=== PATIENT | female | born 1935 | race Two or more races ===

== ENCOUNTER 2018-07-02 22:34 | Inpatient (IN) | payer OTHER ==
[~2018-07-02] VITALS: Ht 149.9 cm; Wt 87.1 kg
[~2018-07-02 22:34] MED LIST: BINOSTO70 MG; CYMBALTA30 MG; HYDRALAZINE HCL25 MG; IMDUR30 MG; LOSARTAN-HCTZ1 EAC1; LUMIGAN2.5 M1; METOPROLOL SUCC50 MG; NEURONTIN800 MG; REFRESH15 ML; SIMVASTATIN20 MG; ZANTAC150 M3
== END 2018-07-06 18:58 | DRG 293 ==
LOC: ER 22:34 → SEC-K 07-03 11:00 → MEDJ 07-03 14:06 → MEDI 07-03 14:06 → MEDJ 07-03 14:12
PROC: B246ZZZ Ultrasonography of Right and Left Heart (ICD-10-PCS; principal; 2018-07-03)
PROC: 4A033R1 Measurement of Arterial Saturation, Peripheral, Percutaneous Approach (ICD-10-PCS; 2018-07-03)
PROC: 3E0F7GC Introduction of Other Therapeutic Substance into Respiratory Tract, Via Natural or Artificial Opening (ICD-10-PCS; 2018-07-03)
PROC: 4A12X4Z Monitoring of Cardiac Electrical Activity, External Approach (ICD-10-PCS; 2018-07-03)
DX: I11.0 Hypertensive heart disease with heart failure (principal); I50.33 Acute on chronic diastolic (congestive) heart failure; I34.0 Nonrheumatic mitral (valve) insufficiency; R09.02 Hypoxemia; E66.09 Other obesity due to excess calories; E78.4 Other hyperlipidemia; I27.29 Other secondary pulmonary hypertension

== ENCOUNTER 2019-05-03 16:03 | Inpatient (IN) | payer OTHER ==
[~2019-05-03] VITALS: Ht 157.5 cm; Wt 87.5 kg
[2019-05-03] MEDS ORDERED: CLOPIDOGREL BIS75 MG (16:33)
[2019-05-03] MEDS ORDERED: NIFEDIPINE20 MG (16:33)
[2019-05-03] MEDS ORDERED: FUROSEMIDE20 MG (16:33)
[2019-05-03] MEDS ORDERED: VALSARTAN320 MG (16:33)
[2019-05-03] MEDS ORDERED: FAMOTIDINE20 MG (16:34)
== END 2019-05-10 14:29 | DRG 281 ==
LOC: ER 16:03 → ICU-2 20:41 → ICU 20:41 → MEDJ 05-07 16:40
PROVIDERS: ADMIT Specialist
PROC: 4A033R1 Measurement of Arterial Saturation, Peripheral, Percutaneous Approach (ICD-10-PCS; principal; 2019-05-03)
PROC: B246ZZZ Ultrasonography of Right and Left Heart (ICD-10-PCS; 2019-05-03)
PROC: 0T9B70Z Drainage of Bladder with Drainage Device, Via Natural or Artificial Opening (ICD-10-PCS; 2019-05-03)
PROC: B54DZZZ Ultrasonography of Bilateral Lower Extremity Veins (ICD-10-PCS; 2019-05-05)
PROC: 4A12X4Z Monitoring of Cardiac Electrical Activity, External Approach (ICD-10-PCS; 2019-05-07)
DX: I11.0 Hypertensive heart disease with heart failure (principal); I21.4 Non-ST elevation (NSTEMI) myocardial infarction; Z99.11 Dependence on respirator [ventilator] status; J98.11 Atelectasis; I13.0 Hypertensive heart and chronic kidney disease with heart failure and stage 1 through stage 4 chronic kidney disease, or unspecified chronic kidney disease; I50.32 Chronic diastolic (congestive) heart failure; N18.3 Chronic kidney disease, stage 3 (moderate); G47.33 Obstructive sleep apnea (adult) (pediatric); E66.01 Morbid (severe) obesity due to excess calories; I87.2 Venous insufficiency (chronic) (peripheral); R09.02 Hypoxemia; I65.23 Occlusion and stenosis of bilateral carotid arteries; M17.4 Other bilateral secondary osteoarthritis of knee; R53.81 Other malaise; E78.49 Other hyperlipidemia; I08.1 Rheumatic disorders of both mitral and tricuspid valves; Z88.6 Allergy status to analgesic agent; Z88.0 Allergy status to penicillin; Z79.01 Long term (current) use of anticoagulants; N39.8 Other specified disorders of urinary system

== ENCOUNTER → 2019-05-20 | Emergency (ER) | payer OTHER ==
[~2019-05-20] VITALS: Ht 147.3 cm; Wt 87.5 kg
[~2019-05-20] MED LIST changes: +CAPOTEN12.5 MG PO; +CLOPIDOGREL BIS75 MG; +FAMOTIDINE20 MG; +FUROSEMIDE20 MG; +NIFEDIPINE20 MG; +POTASSIUM CHLO10 ME1 PO; +VALSARTAN320 MG
== END | disposition left against medical advice (07) ==
LOC: ER 08:27
DX: K57.32 Diverticulitis of large intestine without perforation or abscess without bleeding (principal)

== ENCOUNTER 2020-01-22 09:08 | Outpatient (CLI) | payer OTHER | END 2020-01-22 13:46 | disposition home or self-care (01) | LOC: NUCLEAR 09:08 | DX: I27.21 Secondary pulmonary arterial hypertension (principal); I50.33 Acute on chronic diastolic (congestive) heart failure; G47.33 Obstructive sleep apnea (adult) (pediatric); I67.89 Other cerebrovascular disease ==

== ENCOUNTER 2020-02-29 06:54 | Emergency (ER) | payer OTHER ==
[~2020-02-29] VITALS: Ht 147.3 cm; Wt 87.5 kg
== END 2020-02-29 13:18 | disposition home or self-care (01) ==
LOC: ER 06:54
DX: K29.60 Other gastritis without bleeding (principal)

== ENCOUNTER 2020-05-28 13:14 | Outpatient (CLI) | payer OTHER | END 2020-05-28 19:13 | disposition home or self-care (01) | LOC: OFIC 805 13:14 | PROVIDERS: ATTEND Otolaryngology | DX: H66.91 Otitis media, unspecified, right ear (principal); H72.2X1 Other marginal perforations of tympanic membrane, right ear ==

== ENCOUNTER 2020-06-11 13:43 | Outpatient (CLI) | payer OTHER | END 2020-06-11 14:30 | disposition home or self-care (01) | LOC: OFIC 805 13:43 | PROVIDERS: ATTEND Otolaryngology | DX: H90.3 Sensorineural hearing loss, bilateral (principal); H72.2X1 Other marginal perforations of tympanic membrane, right ear; H61.21 Impacted cerumen, right ear; R09.81 Nasal congestion; J32.9 Chronic sinusitis, unspecified; J34.3 Hypertrophy of nasal turbinates ==

== ENCOUNTER 2020-07-24 09:32 | Emergency (ER) | payer OTHER ==
[~2020-07-24] VITALS: Ht 147.3 cm; Wt 88.5 kg
[2020-07-24] MEDS ORDERED: ATACAND32 MG (09:50)
[2020-07-24] MEDS ORDERED: AZOR 10-20 MG1 EACH (09:52)
== END 2020-07-24 15:12 | disposition home or self-care (01) ==
LOC: ER 09:32 → CPU-OBS 10:18 → ER 15:12
DX: I11.0 Hypertensive heart disease with heart failure (principal); I50.9 Heart failure, unspecified; Z03.818 Encounter for observation for suspected exposure to other biological agents ruled out; R07.89 Other chest pain

== ENCOUNTER 2021-09-07 09:08 | Inpatient (IN) | payer OTHER ==
[~2021-09-07] VITALS: Ht 147.3 cm; Wt 88.9 kg
[~2021-09-07 09:08] MED LIST changes: +ATACAND32 MG; +AZOR 10-20 MG1 EACH
[2021-09-07] MEDS ORDERED: ATACAND32 MG PO (09:14)
[2021-09-07] MEDS ORDERED: HYDRALAZINE HCL25 MG PO (09:16)
== END 2021-09-10 17:43 | disposition home or self-care (01) | DRG 310 ==
LOC: ER 09:08 → MEDJ 10:55
PROVIDERS: ADMIT Specialist; ATTEND Specialist
PROC: B24BZZZ Ultrasonography of Heart with Aorta (ICD-10-PCS; principal; 2021-09-07)
PROC: 4A12X4Z Monitoring of Cardiac Electrical Activity, External Approach (ICD-10-PCS; 2021-09-07)
PROC: B030ZZZ Magnetic Resonance Imaging (MRI) of Brain (ICD-10-PCS; 2021-09-09)
DX: I48.91 Unspecified atrial fibrillation (principal); I11.0 Hypertensive heart disease with heart failure; Z20.822 Contact with and (suspected) exposure to COVID-19
CPT/HCPCS: 70551

== ENCOUNTER 2021-12-25 03:09 | Inpatient (IN) | payer OTHER ==
[~2021-12-25] VITALS: Ht 167.6 cm; Wt 87.1 kg
[~2021-12-25 03:09] MED LIST changes: +ATACAND32 MG PO; +HYDRALAZINE HCL25 MG PO
[2021-12-26] MEDS ORDERED: ALPHAGAN P5 M2 (09:14)
[2021-12-26] MEDS ORDERED: DIGOXIN125 MCG (09:15)
[2021-12-26] MEDS ORDERED: METOPROLOL TART50 MG (09:15)
[2022-01-03] MEDS ORDERED: IMDUR 30 MG PO (13:56)
[2022-01-03] MEDS ORDERED: ISOSORBIDE MONO30 MG PO (13:56)
[2022-01-03] MEDS ORDERED: SIMVASTATIN20 MG PO (13:56)
[2022-01-03] MEDS ORDERED: ATACAND32 MG PO (13:56)
[2022-01-03] MEDS ORDERED: GABAPENTIN400 MG PO (13:56)
[2022-01-03] MEDS ORDERED: HYDRALAZINE HCL50 MG PO (13:56)
[2022-01-03] MEDS ORDERED: INTESTINEX680 M1 PO (13:56)
[2022-01-03] MEDS ORDERED: METOPROLOL TART50 MG PO (13:56)
[2022-01-03] MEDS ORDERED: ELIQUIS5 MG PO (13:56)
[2022-01-03] MEDS ORDERED: FUROSEMIDE20 MG PO (13:56)
== END 2022-01-03 16:13 | disposition home or self-care (01) | DRG 690 ==
LOC: ER 03:09 → MEDI 20:35
PROVIDERS: ADMIT Specialist; ATTEND Specialist
PROC: B24BZZZ Ultrasonography of Heart with Aorta (ICD-10-PCS; principal; 2021-12-25)
PROC: BW21YZZ Computerized Tomography (CT Scan) of Abdomen and Pelvis using Other Contrast (ICD-10-PCS; 2021-12-25)
PROC: 4A12X4Z Monitoring of Cardiac Electrical Activity, External Approach (ICD-10-PCS; 2021-12-26)
DX: N39.0 Urinary tract infection, site not specified (principal); I16.9 Hypertensive crisis, unspecified; I48.20 Chronic atrial fibrillation, unspecified; K57.30 Diverticulosis of large intestine without perforation or abscess without bleeding; K21.9 Gastro-esophageal reflux disease without esophagitis; K59.09 Other constipation; B96.20 Unspecified Escherichia coli [E. coli] as the cause of diseases classified elsewhere; E78.49 Other hyperlipidemia; D72.828 Other elevated white blood cell count; I25.10 Atherosclerotic heart disease of native coronary artery without angina pectoris; Z74.01 Bed confinement status; I11.0 Hypertensive heart disease with heart failure; I50.9 Heart failure, unspecified; Z20.822 Contact with and (suspected) exposure to COVID-19; Z79.01 Long term (current) use of anticoagulants

== ENCOUNTER 2022-02-23 08:05 | Outpatient (CLI) | payer OTHER ==
[~2022-02-23 08:05] MED LIST changes: +ALPHAGAN P5 M2; +DIGOXIN125 MCG; +ELIQUIS5 MG PO; +FUROSEMIDE20 MG PO; +GABAPENTIN400 MG PO; +HYDRALAZINE HCL50 MG PO; +IMDUR 30 MG PO; +INTESTINEX680 M1 PO; +ISOSORBIDE MONO30 MG PO; +METOPROLOL TART50 MG; +METOPROLOL TART50 MG PO; +SIMVASTATIN20 MG PO
== END 2022-02-23 08:13 | disposition home or self-care (01) ==
LOC: NUCLEAR 08:05
PROVIDERS: ATTEND Internal Medicine Cardiovascular Disease
DX: R07.89 Other chest pain (principal); I25.2 Old myocardial infarction

== ENCOUNTER 2022-04-15 22:01 | Inpatient (IN) | payer OTHER ==
[~2022-04-15] VITALS: Ht 149.9 cm; Wt 87.5 kg
--- NOTE | 2022-04-15 22:34 | NUR ---
SE RECIBE PTE ALERTA Y ORIENTADA X3 ACOMPNADA POR DUARTE FAMILIAR LA CUAL REFIERE QUE LA PTE LLEVA 3 PATTON CON AMBAS PIERNAS INFLAMADAS,SE LE SAUL S/V PRESION ALTERIAL 140/95 ,SE LE REALIZA EKG ,ES PTE DEL DR.MARCUS LOVETT Y EL .
--- NOTE | 2022-04-15 23:52 | NUR ---
PTE ALERTA Y ORIENTADA X3 EN CONNIE CON BARANDAS ELEVADAS. SE LE ASUL MUESTRAS DE LAB. DARIELA ORDEN MEDICA BAJO MEDIDAS ASEPTICAS. SE CANALIZA AREA JESS DE EDEMA Y DE ENROJECIMIENTO. SE LE INSERTA ROSARIO DE MANERA ESTERIL DRENANDO 300 ML DE ORINA COLOR AMARILLO INTENSO. SE EDUCA A PTE/FAMILIAR SOBRE TRATAMIENTO MEDICO.
--- NOTE | 2022-04-16 05:13 | NUR ---
3:50AM: PACIENTE TRASLADADA POR ESCOLTA DE TURNO AL AREA DE ICU EN ER. SE UBICA PACIENTE EN CONNIE #2 CON BARANDAS ELEVADAS POR PRECUACION A CAIDA. SE CONECTA A MONITOR CARDIACO Y OXIMETRIA. PACIENTE CON H/L EN BRAZO DERECHO CON ANGIO #18, EL MISMO SE ENCUENTRA PATENTE, JESS DE EDEMA Y ERITEMA, ROSARIO CATETER CON EGRESO URINARIO COLOR AMARILLO ARIELLA Y JESS DE SANGRADO. 3:57AM: SE COMIENZA DRIP DE TRIDIL A 3ML/HR DARIELA ORDEN MEDICA. 4:00AM: SE ELZBIETA PRESION MANUAL LA MISMA ES DE 182/97. SE NOTIFICA LA MISMA A DR WU QUIEN INDICA VOLVER A SHAHLA LUEGO DE 30MIN. 4:32AM: SE ELZBIETA PRESION DE PACINETE LA MISMA ES DE 178/83, SE LE NOTIFICA A DR WU QUIEN ORDENA VERBALMENTE SUBIR EL TRIDIL A 5ML/HR. SE EJECUTA ORDEN MEDICA. SE MANTIENE PACIENTE BAJO OBSERVACION POR CAMBIOS SIGNIFICATIVOS EN DUARTE TRATAMIENTO MEDICO.
--- NOTE | 2022-04-16 06:38 | NUR ---
PACIENTE ELIMINA A TRAVES DEL ROSARIO CATETER 1000ML.
--- NOTE | 2022-04-16 07:00 | NUR ---
PTE ALERTA Y ORIENTADA POR JAY ESFERAS CON BUEN PATRON RESPIRATORIO. ESTA CONECTADA AL MONITOR CARDIACO, NBP Y OXIMETRIA. TIENE CANULA NASALA A 3LT. TIENE CANALIZACIONES X2 EN LA Y RA, CANALIZACIONES PERMANECEN PATENTE JESS DE EDEMA Y ERITEMA. TIENE TRIDIL 50MG/250ML @5ML/HR. TIENE ROSARIO A GRAVEDAD CON ORINA AMARILLA Y SEDIMENTACION.
--- NOTE | 2022-04-16 07:01 | NUR ---
PENDIENTE CONSULTA CON
[2022-04-20] MEDS ORDERED: LATANOPROST2.5 ML (16:04)
[2022-04-20] MEDS ORDERED: ALPHAGAN P5 M2 (16:05)
[2022-04-20] MEDS ORDERED: DIGOXIN125 MCG (16:05)
== END 2022-04-22 23:18 | disposition home or self-care (01) | DRG 292 ==
LOC: ER 22:01 → ICU-2 04-16 16:13 → SEC-K 04-16 16:13 → ICU-2 04-16 18:22 → SEC-K 04-19 10:13 → SURH 04-19 13:42
PROVIDERS: ADMIT Specialist; ATTEND Specialist
PROC: BW24YZZ Computerized Tomography (CT Scan) of Chest and Abdomen using Other Contrast (ICD-10-PCS; principal; 2022-04-16)
PROC: 5A09357 Assistance with Respiratory Ventilation, Less than 24 Consecutive Hours, Continuous Positive Airway Pressure (ICD-10-PCS; 2022-04-17)
PROC: 4A12X4Z Monitoring of Cardiac Electrical Activity, External Approach (ICD-10-PCS; 2022-04-19)
DX: I11.0 Hypertensive heart disease with heart failure (principal); I48.20 Chronic atrial fibrillation, unspecified; I50.813 Acute on chronic right heart failure; I27.81 Cor pulmonale (chronic); I27.29 Other secondary pulmonary hypertension; E87.6 Hypokalemia; R60.0 Localized edema; I35.0 Nonrheumatic aortic (valve) stenosis; Z20.822 Contact with and (suspected) exposure to COVID-19; G47.33 Obstructive sleep apnea (adult) (pediatric)

== ENCOUNTER 2022-04-28 10:41 | Inpatient (IN) | payer OTHER ==
[~2022-04-28] VITALS: Ht 149.9 cm; Wt 104.3 kg
[~2022-04-28 10:41] MED LIST changes: +LATANOPROST2.5 ML
--- NOTE | 2022-04-28 11:13 | NUR ---
SE RECIBE PTE ALERTA Y ORIENTADA X3 QUIEN REFIER PIERNAS EDEMATODSAS HACE UNOS PATTON. PTE CON DX DE CH. SE SAUL S/V Y SE UBICA.
--- NOTE | 2022-04-28 13:26 | NUR ---
SE REALIZAN MUESTRAS DE ERICA POR ORDEN MEDICA, SE ORIENTA A PACIENTE SOBRE ADMINISTRACION DE TERAPIA INTRAVWENOSA Y SE MANTIENE EN OBSERVACION EN ESPERA DE REVALUACION MEDICA. SE REALIZA INSERCION DE MARLENE KATELYN #16. PACIENTE EN CONNIE KATELYN 6.
--- NOTE | 2022-04-28 17:14 | NUR ---
SE RECIBE PTE ALERTA EN CAMA CON BARANDAS ELEVADAS Y EN COMPANIA DE FAMILIAR. RECIBIENDO 0.9 IV FLUID BAJANDO A 100 EN BRAZO JIMENEZ. SONDA URINARIA DRENANDO A GRAVEDAD LA CUAL TENIA 1000 ML Y ORINA COLOR AMARILLO ARIELLA. PENDIENTE REEVALUACION MEDICA.
== END 2022-05-02 21:30 | disposition home or self-care (01) | DRG 292 ==
LOC: ER 10:41 → MEDJ 20:03
PROVIDERS: ADMIT Specialist; ATTEND Specialist
PROC: B246ZZZ Ultrasonography of Right and Left Heart (ICD-10-PCS; principal; 2022-04-28)
PROC: 4A033R1 Measurement of Arterial Saturation, Peripheral, Percutaneous Approach (ICD-10-PCS; 2022-04-28)
PROC: 4A12X4Z Monitoring of Cardiac Electrical Activity, External Approach (ICD-10-PCS; 2022-04-29)
DX: I11.0 Hypertensive heart disease with heart failure (principal); Z68.42 Body mass index [BMI] 45.0-49.9, adult; I48.20 Chronic atrial fibrillation, unspecified; I50.9 Heart failure, unspecified; I27.29 Other secondary pulmonary hypertension; Z20.822 Contact with and (suspected) exposure to COVID-19; E66.01 Morbid (severe) obesity due to excess calories; G47.33 Obstructive sleep apnea (adult) (pediatric)

== ENCOUNTER 2022-10-14 15:42 | Inpatient (IN) | payer OTHER ==
[~2022-10-14] VITALS: Ht 147.3 cm; Wt 88.5 kg
== END 2022-10-22 18:22 | disposition home or self-care (01) | DRG 292 ==
LOC: ER 15:42 → ICU-2 21:29 → SEC-K 10-16 12:37 → MEDI 10-17 11:00 → SEC-K 10-17 12:19 → MEDI 10-18 01:01 → SEC-K 10-18 11:35 → MEDI 10-19 12:28
PROVIDERS: ADMIT Specialist; ATTEND Specialist
PROC: B24BZZZ Ultrasonography of Heart with Aorta (ICD-10-PCS; 2022-10-18)
PROC: 4A12X4Z Monitoring of Cardiac Electrical Activity, External Approach (ICD-10-PCS; principal; 2022-10-19)
DX: I11.0 Hypertensive heart disease with heart failure (principal); N39.0 Urinary tract infection, site not specified; I50.9 Heart failure, unspecified; I35.0 Nonrheumatic aortic (valve) stenosis; I48.91 Unspecified atrial fibrillation; I27.29 Other secondary pulmonary hypertension; E11.9 Type 2 diabetes mellitus without complications; Z79.4 Long term (current) use of insulin; G47.33 Obstructive sleep apnea (adult) (pediatric); B96.1 Klebsiella pneumoniae [K. pneumoniae] as the cause of diseases classified elsewhere; G30.0 Alzheimer's disease with early onset; F02.80 Dementia in other diseases classified elsewhere, unspecified severity, without behavioral disturbance, psychotic disturbance, mood disturbance, and anxiety; E66.01 Morbid (severe) obesity due to excess calories

== ENCOUNTER 2022-11-08 05:25 | Emergency (ER) | payer OTHER ==
[~2022-11-08] VITALS: Ht 147.3 cm; Wt 90.7 kg
== END 2022-11-08 08:53 | disposition home or self-care (01) ==
LOC: ER 05:25
DX: I10 Essential (primary) hypertension (principal); K29.70 Gastritis, unspecified, without bleeding; Z88.0 Allergy status to penicillin; Z88.6 Allergy status to analgesic agent

== ENCOUNTER 2022-11-13 13:10 | Inpatient (IN) | payer OTHER ==
[~2022-11-13] VITALS: Ht 121.9 cm; Wt 90.7 kg
--- NOTE | 2022-11-13 13:14 | NUR ---
PARAMEDICOS REFIERE PACIENTE FRENCH ESTADO VOMITANDO DESDE LA MANANA DE QUANG.
--- NOTE | 2022-11-13 14:52 | NUR ---
SE REALIZAN MUESTRAS DE ERICA A PACIENTE POR ORDEN MEDICA, BAJO MEDIDAS ASEPTICAS. SE REALIZA ADMINISTRACION DE TERAPIA INTRAVENOSA Y SE MANTIEN EN ESPERA DE REALIZAR EKG.
--- NOTE | 2022-11-13 16:18 | NUR ---
SE COLOCA ROSARIO BAJO MEDIDAS ASEPTICAS Y ESTERILES, SE NOTIFICAN ABG A PERSONAL CORRESPONDIENTE
--- NOTE | 2022-11-13 16:27 | NUR ---
SE RECIBE PTE ALERTA Y ORIENTADA X2. CAMA BAJA, BARANDAS ELEVADAS. CANALIZADA EN REGINEO JIMENEZ #22 RECIBIENDO .9NSS BAJANDO A 60 ML/HR. JESS DE EDEMA Y ERITEMA. PENDIENTE RESULTADOS DE LAB Y PLACAS
[2022-11-18] MEDS ORDERED: BUMETANIDE0.5 MG (13:22)
[2022-11-18] MEDS ORDERED: CANDESARTAN CILE8 M1 (13:22)
== END 2022-11-18 14:00 | disposition home or self-care (01) | DRG 291 ==
LOC: ER 13:10 → MEDI 20:51
PROVIDERS: ADMIT Specialist; ATTEND Specialist
PROC: BW21ZZZ Computerized Tomography (CT Scan) of Abdomen and Pelvis (ICD-10-PCS; principal; 2022-11-13)
PROC: B24BZZZ Ultrasonography of Heart with Aorta (ICD-10-PCS; 2022-11-13)
PROC: 4A12X4Z Monitoring of Cardiac Electrical Activity, External Approach (ICD-10-PCS; 2022-11-14)
DX: I11.0 Hypertensive heart disease with heart failure (principal); I50.23 Acute on chronic systolic (congestive) heart failure; E86.0 Dehydration; I27.20 Pulmonary hypertension, unspecified; E87.6 Hypokalemia; R41.82 Altered mental status, unspecified; I48.91 Unspecified atrial fibrillation; Z20.822 Contact with and (suspected) exposure to COVID-19; F03.90 Unspecified dementia, unspecified severity, without behavioral disturbance, psychotic disturbance, mood disturbance, and anxiety